=== PATIENT | female | born 1955 | race Caucasian/White ===

== ENCOUNTER 2024-07-04 08:46 | Emergency (ER) | payer MEDICARE, MEDICAID ==
[~2024-07-04] VITALS: Ht 167.6 cm; Wt 60.3 kg
[2024-07-04] MEDS ORDERED: DEPAKOTE ER500 MG PO (08:56)
[2024-07-04 10:34] VITALS: BP 146/84
== END 2024-07-04 10:34 | disposition home or self-care (01) ==
LOC: ED 08:46
DX: S01.111A Laceration without foreign body of right eyelid and periocular area, initial encounter (principal); W22.8XXA Striking against or struck by other objects, initial encounter; Z79.899 Other long term (current) drug therapy
CPT/HCPCS: 12011; 70450; 99283-25